=== PATIENT | female | born 1950 | race Caucasian/White ===

== ENCOUNTER 2018-07-19 07:59 | Emergency (ER) | payer MEDICARE ==
[~2018-07-19] VITALS: Ht 165.1 cm; Wt 67.4 kg
[~2018-07-19 07:59] MED LIST: LEVO75TA5 PO
--- NOTE | 2018-07-19 08:17 | NUR ---
LIEUTENANT/DEPUTY: PT TO ROOM FROM [facility]. AMBULATORY STEADY GAIT
[2018-07-19] MEDS ORDERED: ONDANSETRON 2MG/ML, 2ML ONE (08:41)
[2018-07-19] MEDS ORDERED: MORPHINE SULFATE 4 MG/ML, 1ML ONE (08:42)
[2018-07-19] MEDS ORDERED: FAMOTIDINE 20 MG/2 ML ONE (08:42)
[2018-07-19] MEDS ORDERED: ANTIDEPRESSANT PO (08:43)
[2018-07-19] MEDS ORDERED: CITA20TA6 PO (08:51)
--- NOTE | 2018-07-19 08:52 | NUR ---
PT MEDICATED PER EMAR. CALL LIGHT WITHIN REACH. SIDE RAILS UP. PT UPDATED WITH POC.
[2018-07-19] MEDS ORDERED: ONDANSETRON 2MG/ML, 2ML IVPush ONE (09:00)
[2018-07-19] MEDS ORDERED: MORPHINE SULFATE 4 MG/ML, 1ML IVPush PRN (09:00)
[2018-07-19] MEDS ORDERED: SODIUM CHLORIDE FLUSH 10ML SYR IVF ONE (09:00)
[2018-07-19] MEDS ORDERED: FAMOTIDINE 20 MG/2 ML IVP ONE (09:00)
[2018-07-19 09:04] LABS: BASOPHILS # (AUTO) 0.06 x10^3/uL (0-0.1); BASOPHILS % (AUTO) 1 % (0-1); EOSINOPHILS # (AUTO) 0.11 x10^3/uL (0-0.4); EOSINOPHILS % (AUTO) 1 % (1-7); LYMPHOCYTES # (AUTO) 2.17 x10^3/uL (1-3.4); LYMPHOCYTES % (AUTO) 22 % (22-44); MD NO; MEAN CORPUSCULAR HEMOGLOBIN 29.9 pg (27.0-34.8); MEAN CORPUSCULAR VOLUME 90.8 fL (80-100); MEAN PLATELET VOLUME 7.8 fL (7.4-10.4); MONOCYTES # (AUTO) 0.64 x10^3/uL (0.2-0.8); MONOCYTES % (AUTO) 7 % (2-9); NEUTROPHILS # (AUTO) 6.79 x10^3/uL (1.8-6.8); NEUTROPHILS % (AUTO) 70 % (42-75); PLATELET COUNT 297 x10^3/uL (130-400); RED BLOOD COUNT 4.75 x10^6/uL (3.82-5.3); RED CELL DISTRIBUTION WIDTH 12.9 % (9.6-15.2)
[2018-07-19 09:17] LABS: ALBUMIN 4.1 g/dL (3.4-5.0); ANION GAP 10 mmol/L (5-15); CALCIUM 10.5 mg/dL (8.5-10.1); CHLORIDE 107 mmol/L (98-107)
[2018-07-19 09:24] LABS: ALANINE AMINOTRANSFERASE 27 U/L (12-78); ALKALINE PHOSPHATASE 114 U/L (45-117); BILIRUBIN,TOTAL 0.5 mg/dL (0.2-1.0); TOTAL PROTEIN 7.8 g/dL (6.4-8.2)
--- NOTE | 2018-07-19 09:29 | NUR ---
PT STATES SHE IS FEELING BETTER AT THIS TIME. BEING TAKEN TO IMAGING.
--- NOTE | 2018-07-19 09:54 | NUR ---
PT UP TO BATRHOOM AT THIS TIME.
[2018-07-19] MEDS ORDERED: OMNIPAQUE 350 MG/ML, 75ML BOTTLE ONE (10:02)
[2018-07-19 10:11] LABS: MICROSCOPIC INDICATED
[2018-07-19 10:20] LABS: CULTURE INDICATED? NO
[2018-07-19 10:45] VITALS: BP 150/58
== END 2018-07-19 10:47 | disposition home or self-care (01) ==
LOC: ED 10:11
DX: A08.4 Viral intestinal infection, unspecified (principal); R10.31 Right lower quadrant pain
CPT/HCPCS: 36415; 74177; 80053; 81001; 83690; 85025; 96374; 96375; 99284; J2270; J2405; J3490; Q9967

== ENCOUNTER 2019-02-05 13:58 | Emergency (ER) | payer MEDICARE ==
[~2019-02-05] VITALS: Ht 162.6 cm; Wt 65.9 kg
[~2019-02-05 13:58] MED LIST changes: +ANTIDEPRESSANT PO; +CITA20TA6 PO
[2019-02-05 14:49] LABS: BASOPHILS # (AUTO) 0.05 x10^3/uL (0-0.1); BASOPHILS % (AUTO) 1 % (0-1); EOSINOPHILS # (AUTO) 0.08 x10^3/uL (0-0.4); EOSINOPHILS % (AUTO) 1 % (1-7); LYMPHOCYTES # (AUTO) 2.57 x10^3/uL (1-3.4); LYMPHOCYTES % (AUTO) 24 % (22-44); MD NO; MEAN CORPUSCULAR HEMOGLOBIN 30.2 pg (27.0-34.8); MEAN CORPUSCULAR VOLUME 91.5 fL (80-100); MEAN PLATELET VOLUME 7.6 fL (7.4-10.4); MONOCYTES # (AUTO) 0.48 x10^3/uL (0.2-0.8); MONOCYTES % (AUTO) 5 % (2-9); NEUTROPHILS % (AUTO) 70 % (42-75); PLATELET COUNT 331 x10^3/uL (130-400); RED BLOOD COUNT 4.67 x10^6/uL (3.82-5.3); RED CELL DISTRIBUTION WIDTH 13.3 % (9.6-15.2)
[2019-02-05 15:02] LABS: ALANINE AMINOTRANSFERASE 23 U/L (12-78); ANION GAP 11 mmol/L (5-15); CALCIUM 10.7 mg/dL (8.5-10.1); CHLORIDE 107 mmol/L (98-107); CREATININE 1.19 mg/dL (0.55-1.02)
[2019-02-05 15:04] LABS: ALKALINE PHOSPHATASE 125 U/L (45-117); BILIRUBIN,TOTAL 0.4 mg/dL (0.2-1.0); TOTAL PROTEIN 7.9 g/dL (6.4-8.2)
[2019-02-05 19:51] LABS: TROPONIN I < 0.015 ng/mL (0.000-0.045)
--- NOTE | 2019-02-05 20:19 | NUR ---
PT AMBULATORY TO ROOM AT THIS TIME.
--- NOTE | 2019-02-05 20:41 | NUR ---
pt to ed for n/v x2 since 1pm today. pt states associated epigastric pain. pt connected to all monitors. vss. no needs expressed. call light within reach. pt able to provide urine sample. ua collected and sent. awaiting edmd assessment.
[2019-02-05 21:00] LABS: MICROSCOPIC INDICATED
[2019-02-05 21:13] LABS: CULTURE INDICATED? NO
--- NOTE | 2019-02-05 21:14 | NUR ---
chart up for recheck.
[2019-02-05 21:42] VITALS: BP 172/63
== END 2019-02-05 21:42 | disposition home or self-care (01) ==
LOC: ED 21:35
DX: R10.13 Epigastric pain (principal); E03.9 Hypothyroidism, unspecified; Z90.89 Acquired absence of other organs
CPT/HCPCS: 36415; 74022; 80053; 81001; 83690; 84484; 85025; 93005; 99284

== ENCOUNTER 2020-05-18 17:14 | Emergency (ER) | payer MEDICARE ==
[~2020-05-18] VITALS: Ht 165.1 cm; Wt 70.8 kg
[2020-05-18 17:16] VITALS: BP 168/58
[2020-05-18] MEDS ORDERED: NEOSPORIN OINT. PKT 1 PACKET ONE (18:37)
--- NOTE | 2020-05-18 18:46 | NUR ---
REC'D REPORT FROM VANESSA YU
--- NOTE | 2020-05-18 18:49 | NUR ---
BEDSIDE REPORT GIVEN TO VANESSA NEGRETE
== END 2020-05-18 19:09 | disposition home or self-care (01) ==
LOC: ED 18:51
DX: S52.592A Other fractures of lower end of left radius, initial encounter for closed fracture (principal); S50.312A Abrasion of left elbow, initial encounter; S50.812A Abrasion of left forearm, initial encounter; E03.9 Hypothyroidism, unspecified; Z90.89 Acquired absence of other organs; W01.0XXA Fall on same level from slipping, tripping and stumbling without subsequent striking against object, initial encounter; Y93.89 Activity, other specified; Y92.410 Unspecified street and highway as the place of occurrence of the external cause; Y99.8 Other external cause status
CPT/HCPCS: 29125; 99283

== ENCOUNTER 2020-09-10 10:45 | Emergency (ER) | payer MEDICARE ==
[~2020-09-10] VITALS: Ht 165.1 cm; Wt 68.7 kg
--- NOTE | 2020-09-10 11:02 | NUR ---
PT PRESENTS WITH C/O N/V SINCE 0600 THIS MORNING, +[place]. PT PLACED ON VITALS MONITORS. CALL LIGHT LEFT WITHIN REACH.
[2020-09-10] MEDS ORDERED: ATOR20TA86 PO (11:10)
[2020-09-10] MEDS ORDERED: HYDR12.575 PO (11:10)
[2020-09-10] MEDS ORDERED: CITA40TA5 PO (11:10)
--- NOTE | 2020-09-10 11:28 | NUR ---
PT AMBULATED TO BATHROOM.
[2020-09-10] MEDS ORDERED: FAMOTIDINE 20 MG/2 ML ONE (11:53)
[2020-09-10] MEDS ORDERED: ONDANSETRON 2MG/ML, 2ML ONE (11:53)
[2020-09-10] MEDS ORDERED: FAMOTIDINE 20 MG/2 ML IVPush ONE (12:00)
[2020-09-10] MEDS ORDERED: SODIUM CHLORIDE 0.9% 1,000ML IVBOLUS ONE (12:00)
[2020-09-10] MEDS ORDERED: ONDANSETRON 2MG/ML, 2ML IVPush ONE (12:00)
[2020-09-10] MEDS ORDERED: SODIUM CHLORIDE FLUSH 10ML SYR IVF ONE (12:00)
[2020-09-10 12:08] LABS: BASOPHILS % (AUTO) 1 % (0-1); EOSINOPHILS % (AUTO) 0 % (1-7); LYMPHOCYTES % (AUTO) 8 % (22-44); MEAN CORPUSCULAR HEMOGLOBIN 29.8 pg (27.0-34.8); MEAN CORPUSCULAR HGB CONC 33.3 g/dL (32.4-35.8); MEAN PLATELET VOLUME 7.6 fL (7.4-10.4); MONOCYTES % (AUTO) 3 % (2-9); NEUTROPHILS % (AUTO) 89 % (42-75); PLATELET COUNT 321 x10^3/uL (130-400); RED BLOOD COUNT 4.59 x10^6/uL (3.82-5.3); RED CELL DISTRIBUTION WIDTH 13.5 % (9.6-15.2)
[2020-09-10 12:15] LABS: ALANINE AMINOTRANSFERASE 19 U/L (12-78); ALBUMIN 3.9 g/dL (3.4-5.0); ANION GAP 11 mmol/L (5-15); CALCIUM 10.2 mg/dL (8.5-10.1); CHLORIDE 106 mmol/L (98-107); CREATININE 0.96 mg/dL (0.55-1.02)
[2020-09-10 12:17] LABS: ALKALINE PHOSPHATASE 124 U/L (45-117); BILIRUBIN,TOTAL 0.6 mg/dL (0.2-1.0); TOTAL PROTEIN 7.9 g/dL (6.4-8.2)
[2020-09-10 12:25] LABS: MICROSCOPIC AUTO
[2020-09-10 13:00] VITALS: BP 162/61
--- NOTE | 2020-09-10 13:30 | NUR ---
ABLE TO KEEP H2O DOWN.
== END 2020-09-10 14:10 | disposition home or self-care (01) ==
LOC: ED 10:50
DX: R11.2 Nausea with vomiting, unspecified (principal); R10.84 Generalized abdominal pain; Z90.89 Acquired absence of other organs
CPT/HCPCS: 36415; 74021; 80053; 81001; 83690; 85025; 96374; 96375; 99284; J2405; J7030